=== PATIENT | female | born 1935 | race Hispanic/Latino ===

== ENCOUNTER 2019-04-23 13:49 | Inpatient (IN) | payer MEDICARE ==
[~2019-04-23] VITALS: Ht 149.9 cm; Wt 55.9 kg
[2019-04-23] MEDS ORDERED: DILTIAZEM HCL 125 MG/25 ML VIAL IV ONE (14:08)
[2019-04-23] MEDS ORDERED: DILTIAZEM HCL 5 MG/ML 10 ML VIAL IV ONE (14:08)
[2019-04-23] MEDS ORDERED: SODIUM CHLORIDE 0.9% 100 ML IV ONE (14:08)
[2019-04-23 14:18] LABS: BASOPHILS % (AUTO) 0.4 % (0.0-5.0); EOSINOPHILS % (AUTO) 0.5 % (0.0-8.0); HEMATOCRIT 45.4 % (36-48); LYMPHOCYTES % (AUTO) 36.8 % (21.0-51.0); MEAN CORPUSCULAR HEMOGLOBIN 30.6 pg (27.0-33.0); MEAN CORPUSCULAR HGB CONC 34.4 g/dL (32.0-36.0); MEAN CORPUSCULAR VOLUME 88.7 fL (79-99); MONOCYTES % (AUTO) 7.9 % (3.0-13.0); NEUTROPHILS % (AUTO) 54.4 % (40.0-77.0); NUCLEATED RED BLOOD CELLS 0.1 % (0.0-0.19); PLATELET COUNT (AUTO) 211 K/uL (130-400); RED BLOOD CELL COUNT(AUTO) 5.12 MIL/uL (4.00-5.50); WHITE BLOOD COUNT (AUTO) 8.2 K/uL (4.8-10.8)
[2019-04-23 14:29] LABS: INR 2.85 (0.85-1.15); PARTIAL THROMBOPLASTIN TIME 43.2 SEC (26.3-35.5); PROTHROMBIN TIME 29.3 SEC (9.6-11.6)
[2019-04-23 14:41] LABS: B-TYPE NATRIURETIC PEPTIDE 137 pg/mL (0-100)
[2019-04-23 16:11] LABS: APPEARANCE,URINE Clear (CLEAR); BILIRUBIN,URINE Negative (NEGATIVE); COLOR,URINE Yellow (YELLOW); GLUCOSE, URINE (UA) Negative (NEGATIVE); KETONES,URINE Negative (NEGATIVE); LEUKOCYTE ESTERASE ,URINE Moderate (NEGATIVE); NITRATE,URINE Negative (NEGATIVE); OCCULT BLOOD,URINE Nonhemolyzed Trace (NEGATIVE); PROTEIN,URINE Negative (NEGATIVE); UROBILINOGEN,URINE 0.2 mg/dL (0.2-1.0)
[2019-04-23] MEDS ORDERED: ACETAMINOPHEN 325 MG TAB PO PRN ×2 (17:00)
[2019-04-23] MEDS ORDERED: DILTIAZEM HCL 125 MG/25 ML 125 MG in SODIUM CHLORIDE 0.9% 100 ML IV SCH (17:00)
[2019-04-23] MEDS ORDERED: ONDANSETRON HCL 4 MG/2 ML VIAL IV PRN (17:00)
[2019-04-23 17:24] LABS: BACTERIA,URINE Few /HPF (None Seen); RBC,URINE None Seen /HPF (0-1); SQUAMOUS EPITHELIAL CELL,UR 0-2 /HPF (0-2); TRANSITIONAL EPI CELLS,URINE Few /HPF (None Seen)
[2019-04-23] MEDS ORDERED: METOPROLOL TARTRATE 25 MG TAB ONE (18:24)
[2019-04-23] MEDS: WARFARIN SODIUM 2.5 MG TAB PO SCH (18:45)
[2019-04-23 21:55] LABS: HEMOGLOBIN A1C 5.9 % (4.0-6.0)
[2019-04-23 21:57] LABS: BASOPHILS % (AUTO) 0.7 % (0.0-5.0); EOSINOPHILS % (AUTO) 0.4 % (0.0-8.0); LYMPHOCYTES % (AUTO) 32.4 % (21.0-51.0); MEAN CORPUSCULAR HEMOGLOBIN 30.5 pg (27.0-33.0); MEAN CORPUSCULAR HGB CONC 34.1 g/dL (32.0-36.0); MEAN CORPUSCULAR VOLUME 89.6 fL (79-99); MONOCYTES % (AUTO) 7.3 % (3.0-13.0); NEUTROPHILS % (AUTO) 59.2 % (40.0-77.0); NUCLEATED RED BLOOD CELLS 0.1 % (0.0-0.19); PLATELET COUNT (AUTO) 218 K/uL (130-400); RED BLOOD CELL COUNT(AUTO) 4.58 MIL/uL (4.00-5.50); WHITE BLOOD COUNT (AUTO) 7.6 K/uL (4.8-10.8)
[2019-04-23 22:18] LABS: ALANINE AMINOTRANSFERASE 17 U/L (12-78); ALBUMIN 3.7 g/dL (3.5-5.0); ASPARTATE AMINOTRANSFERASE 23 U/L (10-37); BILIRUBIN,TOTAL 0.6 mg/dL (0.2-1.0); CARBON DIOXIDE 23 mmol/L (21-32); CHLORIDE 104 mmol/L (101-111); CREATINE KINASE, TOTAL 67 U/L (21-232); CREATININE 1.2 mg/dL (0.5-1.5); GLOMERULAR FILTR. RATE CALC 45 mL/min (>60); GLUCOSE,RANDOM 201 mg/dL (70-105); MYOGLOBIN 74 ng/mL (10-92); POTASSIUM 3.2 mmol/L (3.5-5.1); SODIUM SERUM 140 mmol/L (136-145); THYROID STIMULATING HORMONE 2.11 uIU/mL (0.36-3.74); TOTAL PROTEIN, SERUM 7.5 g/dL (6.0-8.3); TROPONIN I < 0.04 ng/mL (0.00-0.06); UREA NITROGEN, BLOOD 13 mg/dL (7-18)
[2019-04-24 02:17] LABS: CREATINE KINASE, TOTAL 73 U/L (21-232); MYOGLOBIN 98 ng/mL (10-92); TROPONIN I < 0.04 ng/mL (0.00-0.06)
[2019-04-24] MEDS ORDERED: ACETAMINOPHEN 325 MG TAB ONE (08:22)
[2019-04-24] MEDS ORDERED: METOPROLOL TARTRATE 25 MG TAB ONE (08:22)
[2019-04-24] MEDS ORDERED: FAMOTIDINE/PF 20 MG/2 ML VIAL IV ONE (08:23)
[2019-04-24] MEDS: METOPROLOL TARTRATE 25 MG TAB PO SCH ×3 (09:00→18:35)
[2019-04-24] MEDS: FAMOTIDINE/PF 20 MG/2 ML VIAL IV SCH (09:00)
[2019-04-24 09:02] LABS: CREATINE KINASE, TOTAL 118 U/L (21-232); MYOGLOBIN 87 ng/mL (10-92); TROPONIN I < 0.04 ng/mL (0.00-0.06)
[2019-04-24 09:21] LABS: BASOPHILS % (AUTO) 0.7 % (0.0-5.0); EOSINOPHILS % (AUTO) 0.8 % (0.0-8.0); HEMATOCRIT 43.8 % (36-48); LYMPHOCYTES % (AUTO) 34.4 % (21.0-51.0); MEAN CORPUSCULAR HEMOGLOBIN 30.1 pg (27.0-33.0); MEAN CORPUSCULAR HGB CONC 33.8 g/dL (32.0-36.0); NEUTROPHILS % (AUTO) 55.1 % (40.0-77.0); NUCLEATED RED BLOOD CELLS 0.1 % (0.0-0.19); PLATELET COUNT (AUTO) 199 K/uL (130-400); RED BLOOD CELL COUNT(AUTO) 4.92 MIL/uL (4.00-5.50); RED CELL DISTRIBUTION WIDTH 14.1 % (11.0-15.5); WHITE BLOOD COUNT (AUTO) 7.6 K/uL (4.8-10.8)
[2019-04-24 09:31] LABS: CREATININE 0.8 mg/dL (0.5-1.5); POTASSIUM 3.9 mmol/L (3.5-5.1)
[2019-04-24 09:37] LABS: BILIRUBIN,TOTAL 1.1 mg/dL (0.2-1.0); TOTAL PROTEIN, SERUM 8.2 g/dL (6.0-8.3)
[2019-04-24] MEDS: WARFARIN SODIUM 2.5 MG TAB PO SCH (16:00)
[2019-04-24] MEDS ORDERED: CEFTRIAXONE SODIUM 1 GM IVP SCH (16:00)
[2019-04-24 18:21] VITALS: BP_SYST 163; BP_SYST 177; BP_DIAS 106; BP_DIAS 118
[2019-04-24] MEDS ORDERED: MECL-111 PO (18:21)
[2019-04-24] MEDS ORDERED: WARF-67 PO (18:21)
[2019-04-24] MEDS ORDERED: WARF4TAB72 PO (18:21)
[2019-04-24] MEDS ORDERED: BENA10TA12 PO (18:21)
[2019-04-24] MEDS ORDERED: HYDRALAZINE HCL 20 MG/ML VIAL ONE (18:26)
--- NOTE | 2019-04-24 18:30 | NUR ---
ADMISSION RECEIVED PT FROM ER, A&OX3, CALM COOPERATIVE AND DOES NOT APPEAR TO BE IN ANY DISTRESS NOR ANY NEURO DEFICITS PRESENT. PT AMBULATING FROM GURNEY TO BED, GAIT UNSTEADY WITH 1-2 PERSON ASSIST WITH RT LOWER EXTREMITY FLACCIDITY. PT DENIES SOB, NAUSEA BUT DOES C/O GENERALIZED BODY WEAKNESS. CALL LIGHT WITHIN REACH, FAMILY AT BEDSIDE.
[2019-04-24 20:00] VITALS: BP 152/83
[2019-04-24] MEDS ORDERED: OMEP20TA2 PO (20:06)
[2019-04-24] MEDS ORDERED: MAG HYDROX/AL HYDROX/SIMETH ES 30 ML SUSP UDCUP PO PRN (20:30)
[2019-04-24] MEDS: BENAZEPRIL HCL 10 MG TABLET PO SCH (20:57)
[2019-04-24] MEDS: CEFTRIAXONE SODIUM 1 GM IVP SCH (20:57)
[2019-04-24 23:35] VITALS: BP 161/89
[2019-04-25] VITALS (7 sets, daily range): BP systolic 101–159; BP diastolic 76–97
--- NOTE | 2019-04-25 00:35 | NUR ---
MEETA LUJAN PAGED AND MADE AWARE OF CURRENT BP AND TREND, ORDER RECEIVED AND PLACED IN COMPUTER. PATIENT FAMILY REQUESTING MEDICATION FOR PATIENT TO SLEEP, PATIENT CONFUSED AT PRESENT, MEETA LUJAN MADE AWARE OF PATIENT'S ORIENTATION AND FAMILY REQUEST AND NO ORDER RECEIVED AT THIS TIME.
[2019-04-25] MEDS ORDERED: HYDRALAZINE HCL 20 MG/ML VIAL IV PRN (00:45)
[2019-04-25 03:49] LABS: HEMATOCRIT 45.8 % (36-48); MEAN CORPUSCULAR HEMOGLOBIN 29.8 pg (27.0-33.0); MEAN CORPUSCULAR HGB CONC 33.7 g/dL (32.0-36.0); MEAN CORPUSCULAR VOLUME 88.2 fL (79-99); PLATELET COUNT (AUTO) 242 K/uL (130-400); RED BLOOD CELL COUNT(AUTO) 5.19 MIL/uL (4.00-5.50); RED CELL DISTRIBUTION WIDTH 14.2 % (11.0-15.5); WHITE BLOOD COUNT (AUTO) 9.7 K/uL (4.8-10.8)
[2019-04-25 03:59] LABS: INR 2.93 (0.85-1.15); PROTHROMBIN TIME 30.1 SEC (9.6-11.6)
[2019-04-25 04:05] LABS: CREATININE 0.8 mg/dL (0.5-1.5); POTASSIUM 3.4 mmol/L (3.5-5.1)
--- NOTE | 2019-04-25 07:50 | NUR ---
ASSESSMENT ENCOUNTERED PT A&OX3 BUT FORGETFUL, CALM COOPERATIVE AND DOES NOT APPEAR TO BE IN ANY DISTRESS. PT DENIES PAIN, SOB, NAUSEA BUT DOES C/O GENERALIZED BODY WEAKNESS. PT IS ABLE TO TOLERATE SOFT FOODS FLUIDS AND MEDICATIONS WITH NO THROAT CLEARING OR COUGH. CALL LIGHT WITHIN REACH, BED ALARM ACTIVATED, SIDE RAILS UP X 3, FAMILY AT BEDSIDE.
[2019-04-25] MEDS: BENAZEPRIL HCL 10 MG TABLET PO SCH ×2 (09:21→20:58)
[2019-04-25] MEDS: MECLIZINE HCL 25 MG TABLET PO SCH (09:21)
[2019-04-25] MEDS: METOPROLOL TARTRATE 25 MG TAB PO SCH ×2 (09:22→20:58)
[2019-04-25] MEDS: FAMOTIDINE/PF 20 MG/2 ML VIAL IV SCH (09:22)
[2019-04-25] MEDS ORDERED: POTASSIUM CHLORIDE 10MEQ/100ML 100 ML IV PRN (09:30)
[2019-04-25] MEDS ORDERED: TEMAZEPAM 7.5 MG CAPSULE PO PRN (09:30)
[2019-04-25] MEDS ORDERED: LIDOCAINE HCL-MPF 1% 2ML VIAL IVP PRN (09:30)
[2019-04-25] MEDS ORDERED: POTASSIUM CHLORIDE 20 MEQ ERTAB PO PRN (09:30)
--- NOTE | 2019-04-25 11:46 | NUR ---
[facility] BRIAN met with pt and family at bedside. Pt's son Aidan lives with her and other children assist as needed. Daughters Marifer [phone] and Suzanna Harrison [phone] are ER contacts. Prior to admit pt was independent of all ADLS, no DME or in home care services. BRIAN educated on provider services and referred family to [facility] for possible assist. Family requesting [facility]. Consent signed and PASRR complete. CM aware and will make referral Addendum: 04/25/19 at 1212 by ROBIN ROA Amended: Links added.
--- NOTE | 2019-04-25 13:47 | NUR ---
DEJA PLAN MADELEINE SIGNED FOR [facility]. INFO FAXED. SPOKE TO REP PENDING VISIT. WILL LIKELY NEED 3 MIDNIGHTS. PASRR DONE. Addendum: 04/25/19 at 1350 by PAWEL MAYA RN CM Amended: Links added.
[2019-04-25] MEDS: WARFARIN SODIUM 2.5 MG TAB PO SCH (15:35)
[2019-04-25] MEDS: CEFTRIAXONE SODIUM 1 GM IVP SCH (20:58)
[2019-04-26 03:54] LABS: BASOPHILS % (AUTO) 0.5 % (0.0-5.0); EOSINOPHILS % (AUTO) 0.7 % (0.0-8.0); HEMATOCRIT 45.1 % (36-48); LYMPHOCYTES % (AUTO) 26.8 % (21.0-51.0); MEAN CORPUSCULAR HEMOGLOBIN 30.2 pg (27.0-33.0); MEAN CORPUSCULAR HGB CONC 33.8 g/dL (32.0-36.0); MEAN CORPUSCULAR VOLUME 89.5 fL (79-99); NUCLEATED RED BLOOD CELLS 0.3 % (0.0-0.19); PLATELET COUNT (AUTO) 222 K/uL (130-400); RED BLOOD CELL COUNT(AUTO) 5.04 MIL/uL (4.00-5.50); RED CELL DISTRIBUTION WIDTH 14.4 % (11.0-15.5); WHITE BLOOD COUNT (AUTO) 9.9 K/uL (4.8-10.8)
[2019-04-26 04:08] VITALS: BP 159/82
[2019-04-26 04:09] LABS: INR 3.17 (0.85-1.15); PROTHROMBIN TIME 32.5 SEC (9.6-11.6)
[2019-04-26 04:14] LABS: CREATININE 0.8 mg/dL (0.5-1.5); POTASSIUM 3.6 mmol/L (3.5-5.1)
[2019-04-26] MEDS: POTASSIUM CHLORIDE 10% ELIXIR 20 MEQ/15 ML UDCUP PO PRN ×2 (05:53→09:19)
[2019-04-26 07:00] VITALS: BP 158/93
[2019-04-26] MEDS: MECLIZINE HCL 25 MG TABLET PO SCH (09:19)
[2019-04-26] MEDS: FAMOTIDINE/PF 20 MG/2 ML VIAL IV SCH (09:19)
[2019-04-26] MEDS: METOPROLOL TARTRATE 25 MG TAB PO SCH (09:19)
[2019-04-26] MEDS: BENAZEPRIL HCL 10 MG TABLET PO SCH (09:19)
[2019-04-26 11:00] VITALS: BP 141/80
[2019-04-26] MEDS: WARFARIN SODIUM 2.5 MG TAB PO SCH (15:49)
--- NOTE | 2019-04-26 16:00 | NUR ---
EMS Received call from nursing staff stating patient is slouching in the wheel chair and is unable to safely transport via wheel chair-van transport. CM completed PCS form and faxed w/ face sheet to [facility]. Fax confirmation received. Updated bedside nurse.
--- NOTE | 2019-04-26 18:28 | NUR ---
EMS ARRIVED TO TAKE PATIENT TO [facility] AND PATIENT TRANSFERRED TO [facility] WITHOUT INCIDENT. Addendum: 04/26/19 at 1829 by LUIZ HO RN RN Amended: Links added.
== END 2019-04-26 18:32 | DRG 308 ==
LOC: EDH 13:49 → EDHIP 16:53 → 2AH 04-24 17:47
PROVIDERS: ADMIT Internal Medicine; ATTEND Internal Medicine
DX: I48.91 Unspecified atrial fibrillation (principal); G93.41 Metabolic encephalopathy; N39.0 Urinary tract infection, site not specified; D68.59 Other primary thrombophilia; I48.92 Unspecified atrial flutter; I10 Essential (primary) hypertension; E78.5 Hyperlipidemia, unspecified; Z79.01 Long term (current) use of anticoagulants; Z86.73 Personal history of transient ischemic attack (TIA), and cerebral infarction without residual deficits
CPT/HCPCS: 36415; 70450; 71045; 80048; 80053; 81001; 82550; 82948; 83036; 83874; 83880; 84443; 84484; 85025; 85027; 85610; 85730; 93005; 97039; G0378; J0360; J0696; J3490